=== PATIENT | female | born 1990 | race Caucasian/White ===

== ENCOUNTER 2021-04-01 13:27 | Emergency (ER) | payer OTHER ==
[~2021-04-01] VITALS: Ht 154.9 cm; Wt 52.3 kg
[2021-04-01 13:50] VITALS: BP 111/74
[2021-04-01] MEDS ORDERED: CYCLOBENZAPRINE 5MG TABLET PO ONE (14:40)
[2021-04-01] MEDS ORDERED: LIDOCAINE 5% (LIDODERM) PATCH TD ONE (14:40)
[2021-04-01] MEDS ORDERED: KETOROLAC 30 MG/ML 1ML VIAL IM ONE (14:40)
[2021-04-01] MEDS ORDERED: KETO10TAB PO (16:39)
[2021-04-01] MEDS ORDERED: LIDO5DIS41 TD (16:39)
[2021-04-01] MEDS ORDERED: MEDR4PAK PO (16:39)
[2021-04-01] MEDS ORDERED: CYCL5TAB PO (16:40)
[2021-04-01] MEDS ORDERED: **NOTE PATIENT COMMENT** MISC XX SCH (21:00)
== END 2021-04-01 17:06 | disposition home or self-care (01) ==
LOC: M ED 13:27
DX: M54.9 Dorsalgia, unspecified (principal); Z88.1 Allergy status to other antibiotic agents
CPT/HCPCS: 84702; 96372; 99282; J1885